=== PATIENT | male | born 1955 | race Hispanic/Latino ===

== ENCOUNTER → 2019-05-23 | Outpatient (CLI) | payer OTHER | END | disposition home or self-care (01) | LOC: RAH 13:06 | PROVIDERS: ATTEND Family Medicine | DX: Z13.6 Encounter for screening for cardiovascular disorders (principal) | CPT/HCPCS: 75571 ==

== ENCOUNTER 2024-05-01 08:05 | Day surgery (SDC) | payer OTHER ==
[2024-04-27 10:07] LABS: BASOPHILS # (AUTO) 0.09 K/uL (0.00-0.20); BASOPHILS % (AUTO) 1.8 % (0.0-5.0); EOSINOPHILS # (AUTO) 0.38 K/uL (0.00-0.70); EOSINOPHILS % (AUTO) 7.7 % (0.0-8.0); HEMATOCRIT 44.2 % (42-54); IMMATURE GRANULOCYTE ABSOLUTE 0.02 K/uL (0-1); LYMPHOCYTES # (AUTO) 1.7 K/uL (1.0-4.8); LYMPHOCYTES % (AUTO) 35.1 % (21.0-51.0); MEAN CORPUSCULAR HEMOGLOBIN 30.3 pg (27.0-33.0); MEAN CORPUSCULAR HGB CONC 33.5 g/dL (32.0-36.0); MEAN CORPUSCULAR VOLUME 90.6 fL (79-99); MONOCYTES # (AUTO) 0.4 K/uL (0.1-1.0); MONOCYTES % (AUTO) 8.7 % (3.0-13.0); NEUTROPHILS # (AUTO) 2.3 K/uL (1.8-7.7); NEUTROPHILS % (AUTO) 46.3 % (40.0-77.0); PLATELET COUNT (AUTO) 235 K/uL (130-400); RED BLOOD CELL COUNT(AUTO) 4.88 MIL/uL (4.50-6.20); RED CELL DISTRIBUTION WIDTH 12.5 % (11.0-15.5); WHITE BLOOD COUNT (AUTO) 4.9 K/uL (4.8-10.8)
[2024-04-27 10:10] VITALS: BP 127/87; PULSE 69; RESP 13; TEMP 97.5
[2024-04-27 10:17] LABS: APPEARANCE,URINE CLEAR (CLEAR); BILIRUBIN,URINE NEGATIVE (NEGATIVE); COLOR,URINE YELLOW (YELLOW); GLUCOSE, URINE (UA) NEGATIVE (NEGATIVE); KETONES,URINE 10 mg/dL (NEGATIVE); LEUKOCYTE ESTERASE ,URINE NEGATIVE Leu/uL (NEGATIVE); NITRATE,URINE NEGATIVE (NEGATIVE); OCCULT BLOOD,URINE NEGATIVE (NEGATIVE); PROTEIN,URINE NEGATIVE (NEGATIVE); UROBILINOGEN,URINE 0.2 mg/dL (0.2-1.0)
[2024-04-27 10:18] LABS: ADD UA MICROSCOPIC YES
[2024-04-27 10:19] LABS: MUCUS,URINE RARE LPF (None Seen); RBC,URINE 0-1 /HPF (0-1)
[2024-04-27 10:21] LABS: INR <= 0.93 (0.85-1.15); PROTHROMBIN TIME 10.5 SEC (9.6-11.6)
[2024-04-27 10:23] LABS: PARTIAL THROMBOPLASTIN TIME 28.2 SEC (26.3-35.5)
[2024-04-27 10:24] LABS: POTASSIUM 4.5 mmol/L (3.5-5.1)
[2024-04-27 10:32] LABS: B-TYPE NATRIURETIC PEPTIDE 53 pg/mL (0-100)
--- NOTE | 2024-04-27 12:24 | HMCIMG ---
CHEST 1VW REASON: PRE OP COMPARISON: 12/19/2015 FINDINGS: Single view of the chest was obtained. Lungs are clear. Heart size is normal. There is no pulmonary vascular congestion. Mediastinum and bony thorax appear unremarkable. IMPRESSION: 1. Normal single view chest x-ray.
--- NOTE | 2024-04-27 14:27 | EKG ---
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
[2024-05-01] VITALS (10 sets, daily range): BP systolic 116–139; BP diastolic 59–81; PULSE 63–77; RESP 12–18; TEMP 97.4–98.1
[~2024-05-01] VITALS: Ht 172.7 cm; Wt 86.4 kg
[~2024-05-01 08:05] MED LIST: ASPI-1443 PO; GARL10002 PO; METO-391 PO; MVIT PO; NITR0.4T50 SL; ROSU10TA72 PO
[2024-05-01] MEDS: 0.9%NACL 1000ML 1,000 ML IV SCH (09:02)
[2024-05-01] MEDS ORDERED: LIDOCAINE HCL 400MG/20ML VIAL ONE (09:53)
[2024-05-01] MEDS ORDERED: IOHEXOL 350 MG/ML 100ML INFUS..BTL IV ONE (09:53)
[2024-05-01] MEDS ORDERED: HEParin 10,000 UNIT/10ML (1,000 UNIT/ML) VIAL ONE (09:53)
[2024-05-01] MEDS ORDERED: SODIUM BICARB 50MEQ 50ML VIAL 50 ML ONE (09:53)
[2024-05-01] MEDS ORDERED: HEParin-NS 1,000 UNIT/500 ML 1,000 ML IV ONE (09:54)
[2024-05-01] MEDS ORDERED: NITROGLYCERIN 50MG VIAL ONE (09:55)
[2024-05-01] MEDS ORDERED: MIDAZOLAM HCL 1 MG/ML 2ML VIAL ONE (10:13)
[2024-05-01] MEDS ORDERED: niCARDIpine 25MG INJ IV ONE (10:13)
[2024-05-01] MEDS ORDERED: FENTanyl CITRate PF 50 MCG/1 ML 2ML VIAL ONE (10:13)
[2024-05-01] MEDS ORDERED: IOHEXOL-350 50ML VIAL IV ONE (10:26)
[2024-05-01] MEDS ORDERED: TICAGrelor 90 MG TABLET ONE (10:34)
[2024-05-01] MEDS ORDERED: TICA90TA PO (11:18)
[2024-05-01] MEDS ORDERED: 0.9%NACL 1000ML 1,000 ML IV SCH (11:30)
--- NOTE | 2024-05-01 11:37 | PRN ---
Diagnostic Coronary Angiogram, Left Ventricular Cineangiogram, Left Anterior Descending Stent And Left Anterior Descending Intravascular Ultrasound From Radial Approach Indication: Angina pectoris with abnormal nuclear scan, failed medical therapy Technique: The patient was brought to the laboratory apparatus glass blower in a fasting state and sterile preparation was made in usual fashion. The patient had been explained risks and benefits of the procedure and accepted prior to this procedure. Patient was sedated with 1 mg Versed and 50 mcg fentanyl. Under local anesthesia with 1% lidocaine the right radial artery was entered percutaneously and a 5/6 Korean Terumo radial sheath was advanced into the vessel. A cocktail of 5000 units aqueous heparin, 200 mcg Cardene and 200 mcg nitroglycerin was administered via radial arterial injection. A 6 Korean TIGG catheter was advanced to the aortic root over a guidewire and the right coronary was cannulated for selective coronary arteriograms, then the left coronary was armin ulated for selective left coronary arteriograms. Preparation was made for intervention. The patient was given Brilinta 180 mg orally and aspirin 325 mg orally and ACT verified adequate anticoagulation (400). The left main was cannulated with a six Korean 4 cm Q catheter and the LAD was wired with a choice PT. We pre-dilated with a 20 by 2.5 mm balloon and then exchanged for a aden catheter with which we assessed results and also assessed luminal diameter. We exchanged for a 30 x 2.5 mm Archbald Mendon drug- eluting stent, which was deployed at 18 atmospheres. An exchange was made for the IVUS catheter and we reassessed results after administering intracoronary nitroglycerin. We then exchanged for a 6 Korean pigtail using a guidewire and the left vent ricle was cannulated. Left ventricular cineangiography was performed in BRANDT projection and then a pullback recording was obtained. The catheter was removed over a guidewire. At the conclusion of the procedure arterial hemostasis was obtained by use of a Terumo radial band with excellent hemostasis and no complications.. The patient was transferred from the laboratory apparatus glass blower in stable co ndition. Results: A. Hemodynamics: LVEDP 16 before angiography in 20 after, LV systolic pressure 156 with aortic root pressure 156/70, mean 108. B. Ventriculography: The apical cap is mildly hypokinetic but the rest of the ventricle contracts symmetrically and the mitral valve is competent. Ejection fraction is 66% by planimetry. C. Coronary Arteriography: This is a right-dominant system and the right coronary supplies the posterior descending and the posterolateral branch. The posterior descending supplies faint collateral to the distal LAD. The left main is notable for 10% plaque but is otherwise free of disease. The left circumflex supplies a large obtuse marginal and a smaller 2nd obtuse marginal. The 2nd obtuse marginal is narrowed by 90% at its origin but has a limited distribution. The left anterior descending is notable for 30% plaque at the level of the 1st diagonal, which is also nearby 30%. The 2nd diagonal arises in the proximal half of the left anterior descending, and there is a segmental 98% stenosis that commences just before the 2nd diagonal and extends beyond it, providing only BEBE two flow to the distal LAD. The distal LAD barely fills antegrade. D. Intervention: The LAD was stented from just before the 2nd diagonal through the end of the segmentally diseased segment. 0% residual is noted on final angiogram. E. IVUS: Beyond the diseased segment the LAD media diameter is 3 mm in the luminal diameter is in the 2.5-2.8 range. After intervention the stented segment has an MLD of 2.8 to 3.0, in the media diameter at this level is about 3.5-4. Proximal to the stent the MLD is 2.8-3.2 and the media diameter is 4 mm. Conclusions: PANTERA ANNE MD May 01, 2024 11:37
--- NOTE | 2024-05-01 15:16 | EKG ---
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
== END 2024-05-01 15:29 | disposition home or self-care (01) ==
LOC: DAH 08:05
PROVIDERS: ATTEND Internal Medicine Cardiovascular Disease
DX: R94.39 Abnormal result of other cardiovascular function study (principal); I25.119 Atherosclerotic heart disease of native coronary artery with unspecified angina pectoris; I25.83 Coronary atherosclerosis due to lipid rich plaque; I25.84 Coronary atherosclerosis due to calcified coronary lesion; E78.2 Mixed hyperlipidemia; I10 Essential (primary) hypertension; R07.89 Other chest pain; R53.83 Other fatigue; R06.00 Dyspnea, unspecified; E66.9 Obesity, unspecified; K57.90 Diverticulosis of intestine, part unspecified, without perforation or abscess without bleeding; Z83.3 Family history of diabetes mellitus; Z80.9 Family history of malignant neoplasm, unspecified; Z68.28 Body mass index [BMI] 28.0-28.9, adult; Z79.82 Long term (current) use of aspirin; Z79.84 Long term (current) use of oral hypoglycemic drugs; Z79.899 Other long term (current) drug therapy
CPT/HCPCS: 80048; 83880; 85025; 85610; 85730; 81001; 36415; 71045; 93005 ×2; 92978; 93458; 85347; A4223 ×3; C1769 ×3; C1887; C1725 ×2; C1874; C1894; C1753; Q9965 ×2; J3010; J3490 ×4; J7030; J1644 ×2; J2250; Q9967 ×2; A4215; A4222; A4221; A4663; A4216; A4606; C9600; 96360; 96361; 99156; 99157